=== PATIENT | female | born 1985 | race Two or more races ===

== ENCOUNTER 2016-12-22 13:44 | Emergency (ER) | payer MEDICAID ==
--- NOTE | 2016-12-22 14:42 | ED Physician Chart ---
Chief Complaint/HPI - Patient Information Date Seen:: 12/22/16 Time Seen:: 14:30 Chief Complaint:: Redness in surgical wound site for one day. History of Present Illness:: Pt was seen immediately when I was notified about her presence at the ER. Pt had C section in 11/07/16. Pt noticed redness in incision wound site for one day. No fever. No N/V/D. No lightheadedness. Allergies:: Allergies Allergy/AdvReac Type Severity Reaction Status Date / Time No Known Allergies Allergy Verified 12/22/16 13:58 Vitals:: Vital Signs - 8 hr 12/22/16 13:44 Temp 97.1 F HR 69 RR 18 BP 108/79 O2 Sat % 100 Historian:: Patient Family MD/PCP:: Unknown. LMP:: Pt is breast feeding. Her LNMP was 01/2016 Review:: Nurse's Note Reviewed Review of Systems - Review of Systems General/Constitutional: No fever, No chills, No weight loss, No weakness, No diaphoresis, No edema, No loss of appetite Skin: No skin lesions, No rash, No bruising, Other (trace redness in suprapubic wound.) Head: No headache, No light-headedness Eyes: No loss of vision, No pain, No diplopia ENT: No earache, No nasal drainage, No sore throat, No tinnitus Neck: No neck pain, No swelling, No thyromegaly, No stiffness, No mass noted Cardio Vascular: No chest pain, No palpitations, No PND, No orthopnea, No edema Pulmonary: No SOB, No cough, No sputum, No wheezing GI: No nausea, No vomiting, No diarrhea, No pain, No melena, No hematochezia, No constipation, No hematemesis G/U: No dysuria, No frequency, No hematuria [employer]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[employer]: No vaginal discharge, No abnormal vaginal bleed, No contraction Musculoskeletal: No bone or joint pain, No back pain, No muscle pain Endocrine: No polyuria, No polydipsia Psychiatric: No prior psych history Hematopoietic: No bruising, No lymphadenopathy Allergic/Immuno: No urticaria, No angioedema Neurological: No syncope, No focal symptoms, No weakness, No paresthesia, No headache, No seizure, No dizziness, No confusion, No vertigo Past Medical History - Past Medical History Past Medical History: No significant medical hx Family History: None Social History: Non Smoker, No Alcohol, No Drug Use, Single, Other (lives with her children and significant other.) Surgical History: (11/15) Psychiatricy History: None Medication: Reviewed Family Medical History - Family Member Mother History Unknown: Yes Ethnicity: Father History Unknown: Yes Ethnicity: Hx Family Cancer: No Hx Family Congestive Heart Failure: No Hx Family Hypertension: No Hx Family Stroke: No Hx Family Diabetes: No Hx Family Seizures: No Hx Family Dementia: No Hx Family AIDS: No Hx Family HIV: No Hx Family COPD: No Hx Family Hepatitis: No Hx Family Psychiatric Problems: No Hx Family Tuberculosis: No Other Medical History: denies family medical history Physical Exam - Physical Examination General/Constitutional: Awake, Well-developed, well-nourished, Alert, No distress, GCS 15, Non-toxic appearing, Ambulatory Other Gen/Cons comments:: Breathes comfortably, speaks clearly, and ambulates without difficulty. Head: Atraumatic Eyes: Lids, conjuctiva normal, PERRL, EOMI Skin: No ecchymosis, Well hydrated, No lymphadenopathy Other Skin comments:: see also Abdominal exam below. ENMT: External ears, nose nl, Nasal exam nl, Lips, teeth, gums nl, Oropharynx nl , Tonsils nl Neck: Nontender, Full ROM w/o pain, No nuchal rigidity, No stridor Respiratory: Nl effort/Exclusion, Clear to Auscultation, No Wheeze/Rhonchi/Rales Cardio Vascular: RRR, No murmur, gallop, rubs, NL S1 S2 GI: No tenderness/rebounding/guarding, No organomegaly, No hernia, Normal BS's, Nondistended, No mass/bruits, No McBurney tenderness Other GI comments:: Abdomen is soft. There is an approx. 10 cm well healed transverse surgical wound at suprapubic region except trace erythema at the right end with small dry scab. No exudate. No tenderness, swelling or crepitus. Extremities: No tenderness or effusion, Full ROM, normal strength in all extremities, No edema, Normal digits & nails Neuro/Psych: Alert/oriented (oriented x 3), Judgement/insight normal, Mood normal, Normal gait, No focal deficits ED Septic Shock - . Is Septic Shock (SBP<90, OR Lactate>4 mmol\L) present?: No - <6hrs of presentation: Vital Signs: Vital Signs - 8 hr 12/22/16 13:44 Temp 97.1 F HR 69 RR 18 BP 108/79 O2 Sat % 100 Reassessment (Disposition) - Reassessment Reassessment:: 1455 Pt remains stable. Pt requests to go home and does not want further observation/management in hospital. Aftercare instructions given. - Diagnosis Diagnosis:: Early wound infection/cellulitis, stable. - Aftercare/Follow up Instructions Aftercare/Follow-Up Instructions:: Refer to Discharge Instructions Notes:: Increase oral fluid. Avoid picking on wound site. F/U with Dr. Steve or her FEED IN WORK[employer] physician in one day for recheck. Return to ER immediately if condition worsens or if any further questions/problems. Medication Prescribed:: Bactrim DS one tab po q12h for 10 days. D-20 R-0 - Patient Disposition Discharge/Transfer:: Home Time:: 14:55 Condition at Disposition:: Stable, Improved
== END 2016-12-22 15:00 | disposition home or self-care (01) ==
LOC: ER 13:44
DX: Z48.89 Encounter for other specified surgical aftercare (principal)
CPT/HCPCS: Z7502